=== PATIENT | female | born 1970 | race Caucasian/White ===

== ENCOUNTER 2017-07-01 20:25 | Emergency (ER) | payer SELFPAY ==
[~2017-07-01] VITALS: Ht 157.5 cm; Wt 78.0 kg
[2017-07-01 20:27] VITALS: BP 132/68
== END 2017-07-01 23:44 | disposition home or self-care (01) ==
LOC: ER 20:37
DX: R51 Headache (principal); Y08.89XA Assault by other specified means, initial encounter; W18.39XA Other fall on same level, initial encounter; Y93.89 Activity, other specified; Y92.89 Other specified places as the place of occurrence of the external cause
CPT/HCPCS: 99283

== ENCOUNTER 2017-07-06 17:00 | Emergency (ER) | payer SELFPAY ==
[~2017-07-06] VITALS: Ht 162.6 cm; Wt 80.0 kg
[2017-07-06 17:05] VITALS: BP 127/70
== END 2017-07-06 17:16 | disposition left against medical advice (07) ==
LOC: ER 17:07
DX: M79.606 Pain in leg, unspecified (principal); Z53.21 Procedure and treatment not carried out due to patient leaving prior to being seen by health care provider